=== PATIENT | female | born 1975 | race Two or more races ===

== ENCOUNTER 2020-03-11 15:03 | Emergency (ER) | payer MEDICAID, OTHER ==
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
--- NOTE | 2020-03-11 17:49 | CR ---
Left tibia and fibula: 2 views left tibia and fibula were obtained. Comparison: No previous study. Soft tissue swelling appears to be present. Well-corticated bony density off the inferior medial malleolus is noted. No acute fracture or other abnormality is appreciated. Impression: 1. Findings as described above. 2. No acute bony abnormality is appreciated. Diagnostic code #2 This report was dictated in MDT
--- NOTE | 2020-03-11 17:55 | US ---
Left lower extremity deep venous ultrasound: Duplex and color Doppler evaluation was obtained of the left common femoral, superficial femoral, popliteal, posterior tibial and peroneal veins. Findings: Popliteal cyst is noted measuring around 2.8 cm. Normal compression and Doppler blood flow is seen within the deep veins. Impression: 1. Popliteal cyst. 2. No evidence of deep venous thrombosis within the left lower extremity. Diagnostic code #2 This report was dictated in MDT
== END 2020-03-11 18:15 | disposition home or self-care (01) ==
LOC: MW.ED 15:03
DX: M71.22 Synovial cyst of popliteal space [Baker], left knee (principal); M79.662 Pain in left lower leg; F17.210 Nicotine dependence, cigarettes, uncomplicated
CPT/HCPCS: 73590-26-LT; 73590-LT; 93971-26-LT; 93971-LT; 99282; 99284-25

== ENCOUNTER 2020-07-27 15:36 | Emergency (ER) | payer MEDICAID ==
[2020-07-27] MEDS ORDERED: Sodium Chloride 0.9% 10 ML SDV IV PRN (15:44)
[2020-07-27] MEDS ORDERED: Sodium Chloride 0.9% 10 ML Syringe FLUSH PRN (15:44)
[2020-07-27] MEDS ORDERED: Sodium Chloride 0.9% 2.5 ML Syringe FLUSH PRN (15:44)
[2020-07-27] MEDS ORDERED: Sodium Chloride 0.9% 1,000 ML IV SCH (15:45)
[2020-07-27] MEDS ORDERED: OLANZapine 10 MG Vial ONE (15:47)
[2020-07-27] MEDS ORDERED: OLANZapine 10 MG in Water For Injection, Sterile 2.1 ML IM ONE (15:47)
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
--- NOTE | 2020-07-27 16:11 | CR ---
Indication: Trauma Technique: A single view of the chest was obtained is an AP portable supine study Comparison: None Findings: Cardiac and mediastinal silhouette appears normal. Lungs appear clear. There is no pleural effusion or pneumothorax. No visible acute osseous injury on this single-view portable study Impression: Normal single view AP supine portable chest radiograph Dictated by Walter Rojas MD @ Jul 27 2020 4:08PM Signed by Dr. Walter Rojas @ Jul 27 2020 4:09PM
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
[2020-07-27 16:32] LABS: BLOOD UREA NITROGEN,BUN 14 mg/dL (7.0-18.0); CARBON DIOXIDE,CO2 21.3 mmol/L (21.0-32.0); CHLORIDE,CL 105 mmol/L (98-107); GLUCOSE RANDOM 138 mg/dL (74-106); SODIUM,NA 140 mmol/L (136-145)
[2020-07-27] MEDS ORDERED: Potassium Chloride 10% 20 MEQ/15 ML Soln 30 ML UD Cup PO ONE (16:36)
== END 2020-07-27 17:26 ==
LOC: MW.ED 15:36
DX: E87.6 Hypokalemia (principal); F10.129 Alcohol abuse with intoxication, unspecified; Y90.8 Blood alcohol level of 240 mg/100 ml or more; Z79.899 Other long term (current) drug therapy
CPT/HCPCS: 70450; 71045; 72125; 80053; 80074; 80179; 80305; 81003; 81025; 82550; 82962; 84484; 84703; 85025; 85610; 86850; 86900; 86901; 87389; 93005; 99285; A9270; 93010; 99284